=== PATIENT | female | born 1955 | race Caucasian/White ===

== ENCOUNTER 2016-03-27 13:30 | Day surgery (SDC) | payer OTHER ==
[~2016-03-27] VITALS: Ht 160 cm; Wt 82.6 kg
[~2016-03-27 13:30] MED LIST: ADULT LOW DOSE81 M1 PO; ADULT LOW STREN81 M2 PO; ADVAIR 100/501 DISK; ASCORBIC ACID100 MG PO; ASPIRIN81 M2 PO; ATARAX,VISTARIL25 MG PO; BACTRIM,SEPT1 TABLET PO; CARBAMAZEPINE200 MG PO; CARDURA XL4 MG PO; CARDURA4 MG PO; CELECOXIB200 MG PO; CYCLOBENZAPRINE10 MG PO; DOK PLUS TABLE1 EACH PO; DOXAZOSIN; DOXAZOSIN MESYLA4 MG PO; DUONEB 2.5-0.5 M3 ML IH; ENBREL50 MG/1 ML SC; ENDOCET 5-3251 EACH PO; ESOMEPRAZOLE MA40 MG PO; FEOSOL325 MG PO; FISH OIL 1,0001 EAC7 PO; FLEXERIL10 MG PO; FLONASE ALLERG9.9 ML BOTH NARES; FLONASE16 G1 BOTH NARES; GABAPENTIN400 MG PO; GLIPIZIDE10 MG PO; GLIPIZIDE5 M1 PO; GLUCOTROL5 MG PO; HUMALOG100 UNIT/2; HUMALOG100 UNIT/2 SC; HUMULIN 70100 UNIT/2 SC; IMITREX25 MG PO; INVOKANA300 MG PO; JANUVIA100 MG PO; KEFLEX500 MG PO; LAMICTAL ODT200 MG PO; LAMICTAL200 MG PO; LAMICTAL25 MG PO; LAMOTRIGINE PO; LANTUS 3 M100 UNITS1 SC; LEVAQUIN750 MG PO; LINZESS145 MCG PO; LIPITOR80 MG PO; LOPRESSOR50 MG PO; LOVENOX40 MG/0.4 SC; LYRICA100 MG PO; MOTRIN600 MG PO; NASACORT10.8 ML BOTH NARES; NEXIUM10 MG PO; NEXIUM40 MG PO; NICODERM CQ1 EAC2 TD; OXYCODONE HCL10 MG PO; OXYCODONE HCL15 MG PO; OXYCONTIN10 MG PO; OXYCONTIN15 MG PO; OXYCONTIN20 MG PO; PRILOSEC40 MG PO; PROAIR HFA8.5 GM IH; PROBIOTIC1 EAC2 PO; PROMETHAZINE12.5 M1 PO; PROVENTIL,2.5 MG/3 M IH; REGLAN10 MG PO; SIMVASTATIN40 M1 PO; SKELAXIN800 MG PO; STOOL SOFTENER100 M1 PO; STOOL SOFTENER100 MG PO; TEGRETOL; TEGRETOL200 MG PO; THERAGRAN1 TABLET PO; TOPROL XL50 MG PO; VERAMYST10 GM NS; VICODIN,LORT1 TABLET PO; VITAMIN D31000 UNI2 PO; VOLTAREN 1% GE100 GM TP; ZANAFLEX2 M1 PO; ZANAFLEX4 M1 PO; ZANAFLEX4 MG PO; ZOFRAN ODT4 MG PO
[2016-03-27 14:30] LABS: POINT-OF-CARE METER ID UU14174212
== END 2016-03-27 16:05 | disposition home or self-care (01) ==
LOC: PAIN 13:30 → SDC 14:00 → PAIN 16:05
PROVIDERS: Anesthesiology Pain Medicine
DX: M47.894 Other spondylosis, thoracic region (principal); M54.6 Pain in thoracic spine; F41.1 Generalized anxiety disorder; M79.7 Fibromyalgia; K21.9 Gastro-esophageal reflux disease without esophagitis; M47.816 Spondylosis without myelopathy or radiculopathy, lumbar region; M43.02 Spondylolysis, cervical region; J45.909 Unspecified asthma, uncomplicated; F31.62 Bipolar disorder, current episode mixed, moderate; E78.5 Hyperlipidemia, unspecified; I10 Essential (primary) hypertension; F17.200 Nicotine dependence, unspecified, uncomplicated
CPT/HCPCS: 82948; J1030; J1885; J2250; J3010; S0020

== ENCOUNTER 2016-04-03 13:26 | Day surgery (SDC) | payer OTHER ==
[~2016-04-03] VITALS: Ht 160 cm; Wt 82.6 kg
[2016-04-03 14:06] LABS: POINT-OF-CARE METER ID UU14174212
== END 2016-04-03 15:20 | disposition home or self-care (01) ==
LOC: PAIN 13:26 → SDC 14:00 → PAIN 14:00
PROVIDERS: Anesthesiology Pain Medicine
DX: M47.894 Other spondylosis, thoracic region (principal); M43.02 Spondylolysis, cervical region; F41.1 Generalized anxiety disorder; J45.909 Unspecified asthma, uncomplicated; I10 Essential (primary) hypertension; E78.5 Hyperlipidemia, unspecified; M51.36 Other intervertebral disc degeneration, lumbar region; M19.90 Unspecified osteoarthritis, unspecified site; K21.9 Gastro-esophageal reflux disease without esophagitis; E11.9 Type 2 diabetes mellitus without complications
CPT/HCPCS: 82948; J1030; J2250; J3010; S0020

== ENCOUNTER 2016-07-05 08:02 | Day surgery (SDC) | payer OTHER ==
[~2016-07-05] VITALS: Ht 160 cm; Wt 81.6 kg
[2016-07-05 08:31] LABS: POINT-OF-CARE METER ID UU14174212
== END 2016-07-05 10:15 | disposition home or self-care (01) ==
LOC: PAIN 08:02 → SDC 08:30 → PAIN 10:15
PROVIDERS: Anesthesiology Pain Medicine
DX: M47.814 Spondylosis without myelopathy or radiculopathy, thoracic region (principal); M51.16 Intervertebral disc disorders with radiculopathy, lumbar region; M47.812 Spondylosis without myelopathy or radiculopathy, cervical region; I10 Essential (primary) hypertension; E11.9 Type 2 diabetes mellitus without complications; J44.9 Chronic obstructive pulmonary disease, unspecified; M96.1 Postlaminectomy syndrome, not elsewhere classified; J45.909 Unspecified asthma, uncomplicated; E78.5 Hyperlipidemia, unspecified; F41.9 Anxiety disorder, unspecified; K21.9 Gastro-esophageal reflux disease without esophagitis; Z88.0 Allergy status to penicillin; Z79.82 Long term (current) use of aspirin; Z79.4 Long term (current) use of insulin; Z79.891 Long term (current) use of opiate analgesic; Z79.899 Other long term (current) drug therapy; Z87.891 Personal history of nicotine dependence
CPT/HCPCS: 82948; J1030; J2250; J3010; S0020

== ENCOUNTER 2016-07-12 07:53 | Day surgery (SDC) | payer OTHER ==
[~2016-07-12] VITALS: Ht 160 cm; Wt 82.6 kg
== END 2016-07-12 09:51 | disposition home or self-care (01) ==
LOC: PAIN 07:53 → SDC 08:30 → PAIN 08:30
DX: M47.814 Spondylosis without myelopathy or radiculopathy, thoracic region (principal); M51.16 Intervertebral disc disorders with radiculopathy, lumbar region; M47.812 Spondylosis without myelopathy or radiculopathy, cervical region; M96.1 Postlaminectomy syndrome, not elsewhere classified; M46.1 Sacroiliitis, not elsewhere classified; D11.9 Benign neoplasm of major salivary gland, unspecified; I10 Essential (primary) hypertension; J44.9 Chronic obstructive pulmonary disease, unspecified; J45.909 Unspecified asthma, uncomplicated; G47.30 Sleep apnea, unspecified; F17.210 Nicotine dependence, cigarettes, uncomplicated; K21.9 Gastro-esophageal reflux disease without esophagitis; I25.2 Old myocardial infarction; Z79.82 Long term (current) use of aspirin; Z79.4 Long term (current) use of insulin; Z79.891 Long term (current) use of opiate analgesic; Z79.899 Other long term (current) drug therapy; M43.02 Spondylolysis, cervical region; B19.20 Unspecified viral hepatitis C without hepatic coma; E78.5 Hyperlipidemia, unspecified; Z88.0 Allergy status to penicillin
CPT/HCPCS: J1030; J1885; J2250; J3010; S0020

== ENCOUNTER 2016-09-18 09:24 | Day surgery (SDC) | payer OTHER ==
[~2016-09-18] VITALS: Ht 160 cm; Wt 82.6 kg
[~2016-09-18 09:24] MED LIST changes: +ALIVE WOMEN'S1 EAC1 PO; +BASAGLAR K100 UNIT/1 SC; +CLARITIN,ALAVAR10 MG PO; +GARCINIA CAMBO1 EACH PO; +LO-DOSE ASPIRIN81 M2 PO; +VITAMIN C1000 MG PO
[2016-09-18 10:05] LABS: POINT-OF-CARE METER ID UU13113694
== END 2016-09-18 11:12 | disposition home or self-care (01) ==
LOC: PAIN 09:24 → SDC 10:00 → PAIN 11:12
PROVIDERS: Anesthesiology Pain Medicine
DX: M47.812 Spondylosis without myelopathy or radiculopathy, cervical region (principal); M54.2 Cervicalgia; G89.29 Other chronic pain; M47.26 Other spondylosis with radiculopathy, lumbar region; M46.1 Sacroiliitis, not elsewhere classified; M96.1 Postlaminectomy syndrome, not elsewhere classified; M47.814 Spondylosis without myelopathy or radiculopathy, thoracic region; M06.9 Rheumatoid arthritis, unspecified; M79.1 Myalgia; G47.30 Sleep apnea, unspecified; E11.9 Type 2 diabetes mellitus without complications; I10 Essential (primary) hypertension; E78.5 Hyperlipidemia, unspecified; K21.9 Gastro-esophageal reflux disease without esophagitis; K44.9 Diaphragmatic hernia without obstruction or gangrene; Z79.891 Long term (current) use of opiate analgesic; I25.10 Atherosclerotic heart disease of native coronary artery without angina pectoris; J44.9 Chronic obstructive pulmonary disease, unspecified; Z87.891 Personal history of nicotine dependence; Z88.0 Allergy status to penicillin; E66.3 Overweight; Z68.32 Body mass index [BMI] 32.0-32.9, adult
CPT/HCPCS: 82948; J1030; J2250; J3010; S0020

== ENCOUNTER 2016-09-25 09:26 | Day surgery (SDC) | payer OTHER ==
[~2016-09-25] VITALS: Ht 160 cm; Wt 82.6 kg
[2016-09-25 09:58] LABS: POINT-OF-CARE METER ID UU13113694
== END 2016-09-25 11:00 | disposition home or self-care (01) ==
LOC: PAIN 09:26 → SDC 10:00 → PAIN 11:00
PROVIDERS: Anesthesiology Pain Medicine
DX: M47.812 Spondylosis without myelopathy or radiculopathy, cervical region (principal); M54.2 Cervicalgia; M47.26 Other spondylosis with radiculopathy, lumbar region; M79.7 Fibromyalgia; I10 Essential (primary) hypertension; G47.30 Sleep apnea, unspecified; E11.9 Type 2 diabetes mellitus without complications; M79.1 Myalgia; E78.5 Hyperlipidemia, unspecified; K21.9 Gastro-esophageal reflux disease without esophagitis; M96.1 Postlaminectomy syndrome, not elsewhere classified; Z79.82 Long term (current) use of aspirin; Z79.4 Long term (current) use of insulin; Z79.891 Long term (current) use of opiate analgesic; Z88.0 Allergy status to penicillin; F17.210 Nicotine dependence, cigarettes, uncomplicated
CPT/HCPCS: 82948; J1030; J2250; J3010; S0020

== ENCOUNTER 2016-12-31 07:15 | Day surgery (SDC) | payer OTHER ==
[~2016-12-31] VITALS: Ht 160 cm; Wt 78.0 kg
[2016-12-31] MEDS ORDERED: HUMALOG100 UNIT/2 SC (07:33)
[2016-12-31 07:41] LABS: POINT-OF-CARE METER ID UU14174212
== END 2016-12-31 09:01 | disposition home or self-care (01) ==
LOC: PAIN 07:15 → SDC 07:30 → PAIN 09:01
PROVIDERS: Anesthesiology Pain Medicine
DX: M47.812 Spondylosis without myelopathy or radiculopathy, cervical region (principal); M54.2 Cervicalgia; G89.29 Other chronic pain; M47.26 Other spondylosis with radiculopathy, lumbar region; I10 Essential (primary) hypertension; E78.5 Hyperlipidemia, unspecified; K21.9 Gastro-esophageal reflux disease without esophagitis; E11.9 Type 2 diabetes mellitus without complications; I25.10 Atherosclerotic heart disease of native coronary artery without angina pectoris; J44.9 Chronic obstructive pulmonary disease, unspecified; M06.9 Rheumatoid arthritis, unspecified; Z79.891 Long term (current) use of opiate analgesic; Z87.891 Personal history of nicotine dependence; Z79.4 Long term (current) use of insulin; M96.1 Postlaminectomy syndrome, not elsewhere classified; E66.3 Overweight; Z68.30 Body mass index [BMI] 30.0-30.9, adult; Z88.0 Allergy status to penicillin
CPT/HCPCS: 82948; J1030; J2250; J3010; S0020

== ENCOUNTER 2017-01-10 21:22 | Emergency (ER) | payer OTHER ==
[~2017-01-10] VITALS: Ht 160 cm; Wt 78.2 kg
[2017-01-10 21:40] VITALS: BP 174/95
== END 2017-01-10 23:41 | disposition home or self-care (01) ==
LOC: EME 21:22 → EXP 21:22
DX: S43.402A Unspecified sprain of left shoulder joint, initial encounter (principal); X50.9XXA Other and unspecified overexertion or strenuous movements or postures, initial encounter; Y92.003 Bedroom of unspecified non-institutional (private) residence as the place of occurrence of the external cause; F17.200 Nicotine dependence, unspecified, uncomplicated; Z88.0 Allergy status to penicillin; Z88.5 Allergy status to narcotic agent; Z88.6 Allergy status to analgesic agent
CPT/HCPCS: 73030; 99281; 99283

== ENCOUNTER 2017-02-12 10:39 | Day surgery (SDC) | payer OTHER ==
[~2017-02-12] VITALS: Ht 160 cm; Wt 78.0 kg
[~2017-02-12 10:39] MED LIST changes: +DILAUDID8 MG PO; +ZOLOFT25 MG PO
[2017-02-12 12:05] LABS: POINT-OF-CARE METER ID UU14174212
== END 2017-02-12 12:25 | disposition home or self-care (01) ==
LOC: PAIN 10:39 → SDC 11:15 → PAIN 12:25
PROVIDERS: Anesthesiology Pain Medicine
DX: M47.26 Other spondylosis with radiculopathy, lumbar region (principal); M51.16 Intervertebral disc disorders with radiculopathy, lumbar region; M54.5 Low back pain; M47.812 Spondylosis without myelopathy or radiculopathy, cervical region; M47.814 Spondylosis without myelopathy or radiculopathy, thoracic region; I10 Essential (primary) hypertension; E78.5 Hyperlipidemia, unspecified; F41.9 Anxiety disorder, unspecified; J44.9 Chronic obstructive pulmonary disease, unspecified; M96.1 Postlaminectomy syndrome, not elsewhere classified; I25.10 Atherosclerotic heart disease of native coronary artery without angina pectoris; E11.9 Type 2 diabetes mellitus without complications; G47.30 Sleep apnea, unspecified; K21.9 Gastro-esophageal reflux disease without esophagitis; M79.7 Fibromyalgia; K44.9 Diaphragmatic hernia without obstruction or gangrene; Z79.4 Long term (current) use of insulin; Z96.643 Presence of artificial hip joint, bilateral; Z79.82 Long term (current) use of aspirin; Z87.891 Personal history of nicotine dependence; Z88.0 Allergy status to penicillin
CPT/HCPCS: 82948; J1030; J2250; J3010; S0020

== ENCOUNTER 2017-02-19 10:46 | Day surgery (SDC) | payer OTHER ==
[~2017-02-19] VITALS: Ht 160 cm; Wt 78.0 kg
[2017-02-19 11:31] LABS: POINT-OF-CARE METER ID UU14174212
== END 2017-02-19 12:40 | disposition home or self-care (01) ==
LOC: PAIN 10:46 → SDC 11:15 → PAIN 11:15
PROVIDERS: Anesthesiology Pain Medicine
DX: M47.26 Other spondylosis with radiculopathy, lumbar region (principal); M43.16 Spondylolisthesis, lumbar region; M46.1 Sacroiliitis, not elsewhere classified; M54.2 Cervicalgia; G47.30 Sleep apnea, unspecified; M96.1 Postlaminectomy syndrome, not elsewhere classified; M06.9 Rheumatoid arthritis, unspecified; Z87.891 Personal history of nicotine dependence; Z79.82 Long term (current) use of aspirin; Z79.4 Long term (current) use of insulin
CPT/HCPCS: 82948; J1030; J2250; J3010; S0020

== ENCOUNTER 2017-07-30 13:19 | Day surgery (SDC) | payer OTHER ==
[~2017-07-30] VITALS: Ht 161.3 cm; Wt 74.8 kg
== END 2017-07-30 15:28 | disposition home or self-care (01) ==
LOC: PAIN 13:19 → SDC 14:00 → PAIN 15:28
PROVIDERS: Anesthesiology Pain Medicine
PROC: 3E0R33Z Introduction of Anti-inflammatory into Spinal Canal, Percutaneous Approach (ICD-10-PCS; principal; 2017-07-30)
PROC: 3E0R3BZ Introduction of Anesthetic Agent into Spinal Canal, Percutaneous Approach (ICD-10-PCS; principal; 2017-07-30)
DX: M54.16 Radiculopathy, lumbar region (principal); M47.816 Spondylosis without myelopathy or radiculopathy, lumbar region; J44.9 Chronic obstructive pulmonary disease, unspecified; I10 Essential (primary) hypertension; E11.9 Type 2 diabetes mellitus without complications; K21.9 Gastro-esophageal reflux disease without esophagitis; M79.7 Fibromyalgia; I25.10 Atherosclerotic heart disease of native coronary artery without angina pectoris; B19.20 Unspecified viral hepatitis C without hepatic coma; E78.5 Hyperlipidemia, unspecified; G47.30 Sleep apnea, unspecified; F17.200 Nicotine dependence, unspecified, uncomplicated; Z88.0 Allergy status to penicillin; Z79.4 Long term (current) use of insulin; Z79.82 Long term (current) use of aspirin; Z79.891 Long term (current) use of opiate analgesic
CPT/HCPCS: 82948; J1100; J2250

== ENCOUNTER 2017-08-27 06:47 | Day surgery (SDC) | payer OTHER ==
[~2017-08-27] VITALS: Ht 161.3 cm; Wt 74.8 kg
== END 2017-08-27 08:15 | disposition home or self-care (01) ==
LOC: PAIN 06:47 → SDC 07:30 → PAIN 08:15
PROVIDERS: Anesthesiology Pain Medicine
DX: M47.816 Spondylosis without myelopathy or radiculopathy, lumbar region (principal); M79.1 Myalgia; M54.16 Radiculopathy, lumbar region; Z87.891 Personal history of nicotine dependence; Z88.8 Allergy status to other drugs, medicaments and biological substances
CPT/HCPCS: 82948; J1100; J2250; J2704